=== PATIENT | male | born 1940 | race Caucasian/White ===

== ENCOUNTER 2016-09-19 05:59 | Day surgery (SDC) | payer MEDICARE ==
[~2016-09-19] VITALS: Ht 170.2 cm; Wt 86.4 kg
[2016-09-19 06:46] VITALS: BP 122/84; PULSE 49; RESP 20; TEMP 98; O2SAT 97
[2016-09-19] MEDS ORDERED: ALEN1TAB48 PO (06:46)
[2016-09-19] MEDS ORDERED: CYAN1TAB22 (06:46)
[2016-09-19] MEDS ORDERED: COUM2.5T PO (06:46)
[2016-09-19] MEDS ORDERED: PRAV40TA2 PO (06:46)
[2016-09-19] MEDS ORDERED: MAGN250T2 PO (06:46)
[2016-09-19] MEDS ORDERED: K-TA10TA PO (06:46)
[2016-09-19] MEDS ORDERED: METO25TA3 PO (06:46)
[2016-09-19] MEDS ORDERED: TRIA37.53 PO (06:46)
[2016-09-19] MEDS ORDERED: OMEP20TA PO (06:46)
[2016-09-19] MEDS ORDERED: MONT10TA4 PO (06:46)
[2016-09-19] MEDS ORDERED: CALC-187 PO (06:46)
[2016-09-19] MEDS ORDERED: SODIUM CHLORIDE 0.9% 1000 ML IV SCH (07:00)
[2016-09-19 07:04] LABS: AUTOMATED NEUTROPHIL # 3.8 TH/MM3 (1.8-7.7); BASOPHIL # 0.1 TH/MM3 (0-0.2); EOSINOPHIL # 0.3 TH/MM3 (0-0.4); EOSINOPHIL % 5.7 % (0.0-4.0); HEMATOCRIT 47.2 % (39.0-51.0); HEMO FLAGS DIFF FINAL; LYMPH % 19.5 % (9.0-44.0); LYMPHOCYTE # 1.2 TH/MM3 (1.0-4.8); MEAN CELL VOLUME 97.2 FL (80.0-100.0); MONO % 12.1 % (0.0-8.0); NEUT % 61.7 % (16.0-70.0); PLATELET COUNT 249 TH/MM3 (150-450); RED BLOOD COUNT 4.86 MIL/MM3 (4.50-5.90); RED CELL DISTRIBUTION WIDTH 13.1 % (11.6-17.2); WHITE BLOOD COUNT 6.1 TH/MM3 (4.0-11.0)
[2016-09-19 07:13] LABS: APTT (PATIENT) 32.2 SEC (24.3-30.1); INTERNATIONAL NORMALIZED RATIO 1.5 RATIO; PROTHROMBIN TIME - PATIENT 17.3 SEC (9.8-11.6)
[2016-09-19] MEDS ORDERED: MIDAZOLAM HCL 2 MG/2 ML VIAL ONE (08:03)
[2016-09-19] MEDS ORDERED: fentaNYL CITRATE 250 MCG/5 ML AMP ONE (08:03)
--- NOTE | 2016-09-19 09:00 | PD.RAD ---
Post Procedure Progress Note Pre Procedure Diagnosis: (1) DVT of axillary vein, chronic right Post Procedure Diagnosis: (1) DVT of axillary vein, chronic right Procedure Date: Sep 19, 2016 Supervising Radiologist: Willis Leger Proceduralist/Assist: Samantha Liu, RT(R), Elsa Perez, RT(R)(CV) Anesthesia: Local, Analgesia, Conscious Sedation Plan of Activity Patient to Unit: ROPU Patient Condition: Good See PACS Report for procedural detail/treatment Vascular-Venous Procedure Procedure 1 Procedure Site: Abdominal Procedure(s): Permanent IVC Filter (VenaTech) Access Access Site(s): Right Jugular Vein Willis Leger MD Sep 19, 2016 09:00
[2016-09-19] MEDS ORDERED: IOHEXOL 350 MG/ML 50 ML BTL (for RAD DIAG) IV ONE (09:01)
[2016-09-19 09:05] VITALS: BP 138/82; PULSE 51; RESP 16; TEMP 97.7; O2SAT 93
[2016-09-19 09:20] VITALS: BP 148/86; PULSE 53; RESP 16; O2SAT 94
[2016-09-19 09:50] VITALS: BP 130/79; PULSE 50; RESP 18; O2SAT 95
[2016-09-19 10:20] VITALS: BP 136/69; PULSE 48; RESP 16; O2SAT 97
--- NOTE | 2016-09-19 10:49 | RADRPT ---
EXAM DATE/TIME: 09/19/2016 08:31 [facility] COMPARISON: No previous studies available for comparison. INDICATIONS : Patient with a history of DVT MEDICAL HISTORY : DVT COPD Pulmonary Fibrosis SURGICAL HISTORY : [facility] ENCOUNTER: Initial ACUITY: 2 weeks PAIN SCORE: 4/10 LOCATION: Bilateral mid back FLUORO TIME: 1.7 minutes ACCESS SITE: Right Internal jugular vein SEDATION TIME: 30 minutes CONTRAST: 1.) 50 cc Omnipaque (iohexol) 350 MEDICATION(S): 1.) 100 mcg fentanyl (Sublimaze) IV 2.) 1 mg midazolam (Versed) IV DEVICE(S): 1.) Inferior vena cava B Mack Venatech filter PROCEDURE : 1. Ultrasound-guided venipuncture. 2. Inferior venacavogram. 3. Inferior vena cava filter placement. 4. Conscious sedation with continuous EKG and oximetry monitoring. The risks, benefits and alternatives to the procedure were explained and verbal and written consent w as obtained. The site was prepped in sterile fashion. Full sterile technique was used, including ca p, mask, sterile gloves and gown and a large sterile sheet. Hand hygiene and 2% chlorhexidine and/or betadine/alcohol prep was utilized per protocol for cutaneous antisepsis. The skin and subcutaneous tissues were infiltrated with local anesthetic solution. With ultrasound and fluoroscopic guidance the targeted vein was punctured and a vascular sheath was p laced. Inferior venacavogram was performed to demonstrate level of renal veins. Questionable accessor y on the left. No caval thrombus was identified. The prescribed filter was deployed in the infrarenal inferior vena cava. Following deployment the filter was identified in good position. Conscious sedation was performed with the prescribed dosages and duration as above. The patient nam ated the procedure well and there were no complications. EKG and oximetry remained stable throughout the procedure. The patient was sent to post anesthesia recovery in stable condition. CONCLUSION: Uncomplicated inferior vena cava filter placement as above. Willis Leger MD on September 19, 2016 at 10:46 Board Certified Radiologist. This report was verified electronically.
== END 2016-09-19 11:07 | disposition home or self-care (01) ==
LOC: HRIP 05:59 → HROP 05:59
PROVIDERS: ATTEND Family Medicine
DX: I82.A19 Acute embolism and thrombosis of unspecified axillary vein (principal); J44.9 Chronic obstructive pulmonary disease, unspecified; J84.10 Pulmonary fibrosis, unspecified
CPT/HCPCS: 37191; 85025; 85610; 85730; 99152; 99153; C1769; C1880; J2250; J3010; J7030; Q9967